=== PATIENT | male | born 1945 | race Caucasian/White ===

== ENCOUNTER 2017-11-25 06:38 | Emergency (ER) | payer MEDICARE, OTHER ==
[2017-11-25] MEDS: ALBUTEROL 0.083% (NEB) 2.5 MG/3 ML AMP NEB (07:53)
[2017-11-25] MEDS: IPRATROPIUM (NEB) 0.5 MG/2.5 ML AMP NEB (07:53)
== END 2017-11-25 09:10 | disposition home or self-care (01) ==
LOC: E/R 06:38
DX: J10.1 Influenza due to other identified influenza virus with other respiratory manifestations (principal); E11.9 Type 2 diabetes mellitus without complications; I10 Essential (primary) hypertension; Z79.4 Long term (current) use of insulin; Z79.82 Long term (current) use of aspirin
CPT/HCPCS: 71010; 87400; 94664; 99284-25

== ENCOUNTER 2019-06-01 14:14 | Emergency (ER) | payer MEDICARE, OTHER ==
[2019-06-01] MEDS: DEXAMETHASONE 10 MG/ML 1 ML INJ IM (15:30)
== END 2019-06-01 15:50 | disposition home or self-care (01) ==
LOC: FTE 14:14
DX: M77.9 Enthesopathy, unspecified (principal); I10 Essential (primary) hypertension; E11.9 Type 2 diabetes mellitus without complications; Z79.4 Long term (current) use of insulin; Z79.82 Long term (current) use of aspirin
CPT/HCPCS: 93005; 96372; 99284-25